=== PATIENT | female | born 1960 | race Caucasian/White ===

== ENCOUNTER 2017-01-04 17:22 | Inpatient (IN) | payer OTHER, MEDICARE ==
[~2017-01-04] VITALS: Ht 172.7 cm; Wt 73.6 kg
[2017-01-04 17:42] VITALS: BP 159/91; PULSE 99; RESP 18; TEMP 97.8; O2SAT 100
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
--- NOTE | 2017-01-04 18:29 | RADRPT ---
EXAM DATE/TIME: 01/04/2017 17:50 [facility] COMPARISON: No previous studies available for comparison. INDICATIONS : Low back pain, fell MEDICAL HISTORY : None. SURGICAL HISTORY : None. ENCOUNTER: Initial ACUITY: 4 - 6 months PAIN SCORE: Non-responsive. LOCATION: Lumbar spine FINDINGS: Mild disc space narrowing and mild anterior osteophyte formation noted. Moderate facet hypertrophic c hanges at L3-4 through L5-S1. No compression deformity. CONCLUSION: Degenerative changes are noted as above. Fito Dumont MD on January 04, 2017 at 18:27 Board Certified Radiologist. This report was verified electronically.
[2017-01-04 19:16] VITALS: BP 154/93; PULSE 71; RESP 18; TEMP 97.7; O2SAT 100
[2017-01-04 20:13] LABS: AUTOMATED NEUTROPHIL # 2.4 TH/MM3 (1.8-7.7); BASOPHIL % 0.7 % (0.0-2.0); EOSINOPHIL % 0.3 % (0.0-4.0); HEMATOCRIT 40.4 % (35.0-46.0); HEMO FLAGS DIFF FINAL; LYMPH % 28.4 % (9.0-44.0); LYMPHOCYTE # 1.2 TH/MM3 (1.0-4.8); MEAN CELL VOLUME 99.2 FL (80.0-100.0); MEAN CORPUSCULAR HGB CONC 34.2 % (32.0-36.0); MONO % 10.8 % (0.0-8.0); NEUT % 59.8 % (16.0-70.0); PLATELET COUNT 286 TH/MM3 (150-450); RED BLOOD COUNT 4.07 MIL/MM3 (4.00-5.30); RED CELL DISTRIBUTION WIDTH 13.1 % (11.6-17.2); WHITE BLOOD COUNT 4.1 TH/MM3 (4.0-11.0)
[2017-01-04 20:19] LABS: ANION GAP 7 MEQ/L (5-15); AST (GOT) 53 U/L (15-37); BICARBONATE 30.9 MEQ/L (21.0-32.0); BLOOD UREA NITROGEN 6 MG/DL (7-18); CHLORIDE 98 MEQ/L (98-107); GLOMERULAR FILTRATION RATE 97 ML/MIN (>89); POTASSIUM 3.4 MEQ/L (3.5-5.1); SODIUM (NA) 136 MEQ/L (136-145)
[2017-01-04 20:23] LABS: ALKALINE PHOSPHATASE 87 U/L (45-117); ALT (GPT) 51 U/L (10-53); TOTAL BILIRUBIN ADULT 0.4 MG/DL (0.2-1.0)
[2017-01-04 20:24] LABS: ALCOHOL LESS THAN 3 MG/DL (0-5)
[2017-01-04 23:24] VITALS: BP 111/62; PULSE 84; RESP 18
[2017-01-05] MEDS ORDERED: LEVO88TA2 PO (01:43)
[2017-01-05 02:30] VITALS: BP 123/86; PULSE 73; RESP 18; TEMP 97.8; O2SAT 99
[2017-01-05] MEDS ORDERED: ALUMINUM/MAGNESIUM/SIMETH 30 ML CUP PO PRN (02:45)
[2017-01-05] MEDS ORDERED: MAGNESIUM HYDROXIDE SUSP 30 ML CUP PO PRN (02:45)
[2017-01-05] MEDS ORDERED: LORazepam 1 MG TAB PO PRN (02:45)
[2017-01-05] MEDS ORDERED: LORazepam 2 MG/ML VIAL IM PRN (02:45)
[2017-01-05] MEDS ORDERED: diphenhydrAMINE HCL 50 MG/ML VIAL - HS PRN IM (02:45)
[2017-01-05] MEDS ORDERED: diphenhydrAMINE HCL 50 MG/ML VIAL IM PRN (02:45)
[2017-01-05] MEDS ORDERED: hydrOXYzine HCL 50 MG TAB PO PRN ×2 (02:45→11:30)
[2017-01-05] MEDS ORDERED: ACETAMINOPHEN 325 MG TAB PO PRN (02:45)
[2017-01-05] MEDS ORDERED: diphenhydrAMINE HCL 50 MG CAP - HS PRN PO (02:45)
[2017-01-05] MEDS ORDERED: diphenhydrAMINE HCL 50 MG CAP PO PRN (02:45)
[2017-01-05 06:00] VITALS: BP 136/84; PULSE 81; RESP 18; TEMP 97.9; O2SAT 97
[2017-01-05] MEDS ORDERED: LEVOTHYROXINE SODIUM 88 MCG TAB PO SCH (06:00)
[2017-01-05] MEDS: NICOTINE 21 MG/24 HR PATCH T-DERMAL SCH (08:13)
--- NOTE | 2017-01-05 09:47 | PD.CONS ---
[facility] By Reason for Consult medical management Primary Care Physician Unknown Diagnoses: History of Present Illness patient is a 56 y/o female with history of anxiety and hypothyroidism who presented to ER after she fell the other day. she says that while she was at a store she slipped and fell and started to have some back pain. there's no history of syncope. she says that her back pain is much better now but she's complaining of anxiety. she denies any chest pain, sob, abdominal pain, nausea. Review of Systems Constitutional: DENIES: Fever, Weight loss, Chills, Night Sweats Eyes: DENIES: Blurred vision, Diplopia, Vision loss, Double Vision Ears, nose, mouth, throat: DENIES: Tinnitus, Vertigo, Throat pain, Epistaxis Respiratory: DENIES: Apneas, Cough, Snoring, Wheezing, Hemoptysis, Sputum production, Shortness of breath Cardiovascular: DENIES: Chest pain, Palpitations, Syncope, Dyspnea on Exertion , PND, Lower Extremity Edema, Orthopnea, Claudication Gastrointestinal: DENIES: Abdominal pain, Black stools, Bloody stools, Constipation, Diarrhea, Nausea, Vomiting, Difficulty Swallowing, Anorexia Genitourinary: DENIES: Urinary frequency, Urgency, Hematuria, Dysuria Musculoskeletal: COMPLAINS OF: Back pain, DENIES: Joint pain, Muscle aches, Stiffness, Joint Swelling Integumentary: DENIES: Rash Neurologic: DENIES: Abnormal gait, Headache, Localized weakness, Paresthesias, Seizures, Speech Problems, Tremor, Poor Balance Psychiatric: COMPLAINS OF: Anxiety, DENIES: Confusion, Mood changes, Depression , Hallucinations, Agitation, Suicidal Ideation, Homicidal Ideation, Delusions Past Family Social History Allergies: Coded Allergies: Sulfa (Sulfonamide Antibiotics) (Unverified Allergy, Severe, Rash, ) codeine (Unverified Allergy, Severe, Nausea/Vomiting, 01/04/17) erythromycin base (Unverified Allergy, Severe, Rash, 01/04/17) morphine (Unverified Allergy, Severe, Nausea/Vomiting, 01/04/17) gentamicin (Unverified Allergy, Mild, 01/04/17) neomycin (Unverified Allergy, Mild, 01/04/17) streptomycin (Unverified Allergy, Mild, 01/04/17) tobramycin (Unverified Allergy, Mild, 01/04/17) Past Medical History anxiety hypothyroidism Past Surgical History surgery on the right hand. Reported Medications levothyroxine. Active Ordered Medications Current Medications Hydroxyzine Pamoate (Vistaril) 50 mg ONCE ONCE PO Last administered on 18:23; Start 01/04/17 at 17:45; Stop 01/04/17 at 17:46; Status DC Lorazepam (Ativan) 1 mg Q6H PRN PO MODERATE TO SEVERE ANXIETY; Start 01/05/17 at 02:45 Lorazepam (Ativan Inj) 1 mg Q6H PRN IM MODERATE TO SEVERE ANXIETY; Start 01/05 at 02:45 Hydroxyzine HCl (Atarax) 50 mg Q6H PRN PO ANXIETY Last administered on 02:57; Start 01/05/17 at 02:45 Diphenhydramine HCl (Benadryl) 50 mg Q6H PRN PO MILD ANXIETY, EPS; Start 01/05 at 02:45 Diphenhydramine HCl (Benadryl Inj) 50 mg Q6H PRN IM MILD ANXIETY, EPS; Start 01/05/17 at 02:45 Diphenhydramine HCl (Benadryl) 50 mg HS PRN PO INSOMNIA; Start 01/05/17 at 02: 45 Diphenhydramine HCl (Benadryl Inj) 50 mg HS PRN IM INSOMNIA; Start 01/05/17 at 02:45 Acetaminophen (Tylenol) 650 mg Q4H PRN PO Pain 1-5 or Temp >101F; Start at 02:45 Magnesium Hydroxide (Milk Of Magnesia Liq) 30 ml DAILY PRN PO CONSTIPATION; Start 01/05/17 at 02:45 Al Hydrox/Mg Hydrox/Simethicone (Mag-Al Plus Susp Liq) 30 ml Q6H PRN PO DYSPEPSIA; Start 01/05/17 at 02:45 Nicotine (Habitrol 21 Mg Patch.24 Hr) 1 patch DAILY T-DERMAL Last administered on 01/05/17 08:13; Start 01/05/17 at 09:00 Miscellaneous Information 1 HS T-DERMAL ; Start 01/05/17 at 21:00 Levothyroxine Sodium (Synthroid) 88 mcg DAILY@0600 PO Last administered on t 05:56; Start 01/05/17 at 06:00 Social History smokes and drinks daily. Physical Exam Vital Signs Vital Signs Date Time Temp Pulse Resp B/P (MAP) Pulse Ox O2 Delivery O2 Flow Rate FiO2 01/05/17 06:00 97.9 81 18 136/84 (101) 97 01/05/17 02:30 97.8 73 18 123/86 (98) 99 01/04/17 23:24 84 18 111/62 (78) 01/04/17 19:16 97.7 71 18 154/93 (113) 100 Room Air 01/04/17 17:42 97.8 99 18 159/91 (113) 100 Physical Exam GENERAL: This is a well-nourished, well-developed patient, in no apparent distress. SKIN: No rashes, ecchymoses or lesions. Cool and dry. HEAD: Atraumatic. Normocephalic. No temporal or scalp tenderness. EYES: Pupils equal round and reactive. Extraocular motions intact. No scleral icterus. No injection or drainage. ENT: Nose without bleeding, purulent drainage or septal hematoma. Throat without erythema, tonsillar hypertrophy or exudate. Uvula midline. Airway patent. NECK: Trachea midline. No JVD or lymphadenopathy. Supple, nontender, no meningeal signs. CARDIOVASCULAR: Regular rate and rhythm without murmurs, gallops, or rubs. RESPIRATORY: Clear to auscultation. Breath sounds equal bilaterally. No wheezes , rales, or rhonchi. GASTROINTESTINAL: Abdomen soft, non-tender, nondistended. No hepato-splenomegaly , or palpable masses. No guarding. MUSCULOSKELETAL: Extremities without clubbing, cyanosis, or edema. No joint tenderness, effusion, or edema noted. No calf tenderness. Negative Homans sign bilaterally. NEUROLOGICAL: Awake and alert. Laboratory Laboratory Tests Test 01/04/17 19:25 White Blood Count 4.1 Red Blood Count 4.07 Hemoglobin 13.8 Hematocrit 40.4 Mean Corpuscular Volume 99.2 Mean Corpuscular Hemoglobin 34.0 Mean Corpuscular Hemoglobin Concent 34.2 Red Cell Distribution Width 13.1 Platelet Count 286 Mean Platelet Volume 7.8 Neutrophils (%) (Auto) 59.8 Lymphocytes (%) (Auto) 28.4 Monocytes (%) (Auto) 10.8 Eosinophils (%) (Auto) 0.3 Basophils (%) (Auto) 0.7 Neutrophils # (Auto) 2.4 Lymphocytes # (Auto) 1.2 Monocytes # (Auto) 0.4 Eosinophils # (Auto) 0.0 Basophils # (Auto) 0.0 CBC Comment DIFF FINAL Differential Comment Blood Urea Nitrogen 6 Creatinine 0.64 Random Glucose 95 Total Protein 7.0 Albumin 4.1 Calcium Level 8.4 Alkaline Phosphatase 87 Aspartate Amino Transf (AST/SGOT) 53 Alanine Aminotransferase (ALT/SGPT) 51 Total Bilirubin 0.4 Sodium Level 136 Potassium Level 3.4 Chloride Level 98 Carbon Dioxide Level 30.9 Anion Gap 7 Estimat Glomerular Filtration Rate 97 Urine Opiates Screen NEG Urine Barbiturates Screen NEG Urine Amphetamines Screen NEG Urine Benzodiazepines Screen NEG Urine Cocaine Screen NEG Urine Cannabinoids Screen NEG Ethyl Alcohol Level LESS THAN 3 Result Diagram: 01/04/17192401/04/17 192 Imaging Last Impressions Lumbar Spine X-Ray 01/04/17 0000 Signed Impressions: Service Date/Time: Wednesday, January 04, 2017 17:50 - CONCLUSION: Degenerative changes are noted as above. Fito Dumont MD Assessment and Plan Assessment and Plan A/P - anxiety; management per psych. -low back pain after a fall- XR of the lumbar spine with no fractures- continue with pain control. -hypothyroidism; continue levothyroxine-check TSH. thank you for the consult. Discussed Condition With the patient. Basim Mcrae MD Jan 05, 2017 09:47
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
[2017-01-05] MEDS ORDERED: NICOTINE 21 MG/24 HR PATCH T-DERMAL SCH (12:00)
[2017-01-05] MEDS: QUEtiapine FUMARATE 25 MG TAB PO SCH (15:40)
[2017-01-05 18:01] VITALS: BP 127/79; PULSE 98; RESP 18; TEMP 97.4; O2SAT 100
[2017-01-05] MEDS: QUEtiapine FUMARATE 100 MG TAB PO SCH (20:31)
[2017-01-05] MEDS: REMOVE OLD NICOTINE PATCH T-DERMAL SCH (20:32)
[2017-01-06] MEDS: ACETAMINOPHEN 325 MG TAB PO PRN ×2 (01:11→05:52)
[2017-01-06] MEDS: diphenhydrAMINE HCL 50 MG CAP PO PRN ×2 (01:12→21:22)
[2017-01-06 05:33] VITALS: BP 125/85; PULSE 72; RESP 18; TEMP 97.3; O2SAT 97
[2017-01-06] MEDS ORDERED: LEVOTHYROXINE SODIUM 88 MCG TAB PO SCH (06:00)
[2017-01-06 07:58] LABS: AUTOMATED NEUTROPHIL # 1.6 TH/MM3 (1.8-7.7); BASOPHIL % 0.5 % (0.0-2.0); EOSINOPHIL # 0.1 TH/MM3 (0-0.4); EOSINOPHIL % 3.4 % (0.0-4.0); HEMATOCRIT 42.5 % (35.0-46.0); HEMO FLAGS DIFF FINAL; LYMPH % 47.2 % (9.0-44.0); LYMPHOCYTE # 1.9 TH/MM3 (1.0-4.8); MEAN CELL VOLUME 100.9 FL (80.0-100.0); MEAN CORPUSCULAR HEMOGLOBIN 33.4 PG (27.0-34.0); MEAN CORPUSCULAR HGB CONC 33.1 % (32.0-36.0); MONO % 8.2 % (0.0-8.0); NEUT % 40.7 % (16.0-70.0); PLATELET COUNT 261 TH/MM3 (150-450); RED BLOOD COUNT 4.21 MIL/MM3 (4.00-5.30); RED CELL DISTRIBUTION WIDTH 13.6 % (11.6-17.2); WHITE BLOOD COUNT 3.9 TH/MM3 (4.0-11.0)
[2017-01-06] MEDS: QUEtiapine FUMARATE 25 MG TAB PO SCH ×2 (08:14→16:41)
[2017-01-06] MEDS: NICOTINE 21 MG/24 HR PATCH T-DERMAL SCH (08:15)
[2017-01-06 08:25] LABS: ANION GAP 7 MEQ/L (5-15); BLOOD UREA NITROGEN 12 MG/DL (7-18); CHLORIDE 100 MEQ/L (98-107); GLOMERULAR FILTRATION RATE 120 ML/MIN (>89); POTASSIUM 3.8 MEQ/L (3.5-5.1); SODIUM (NA) 136 MEQ/L (136-145)
[2017-01-06 08:36] LABS: FREE T3 2.99 PG/ML (2.18-3.98); HDL CHOLESTEROL 129.8 MG/DL (40.0-60.0); LDL CHOLESTEROL 58 MG/DL (0-99)
[2017-01-06] MEDS ORDERED: IBUPROFEN 600 MG TAB PO PRN (11:15)
--- NOTE | 2017-01-06 11:15 | HHI.PR ---
Subjective Remarks in no acute distress. has some back pain. no focal weakness or numbness. d/w the RN and no acute issues over night. Objective Vitals Vital Signs Date Time Temp Pulse Resp B/P (MAP) Pulse Ox O2 Delivery O2 Flow Rate FiO2 01/06/17 05:33 97.3 72 18 125/85 (98) 97 01/05/17 18:01 97.4 98 18 127/79 (95) 100 I/O 01/05/17 01/05/17 01/05/17 01/06/17 01/06/17 01/06/17 07:00 15:00 23:00 07:00 15:00 23:00 Intake Total 540 ml 240 ml 360 ml Balance 540 ml 240 ml 360 ml Intake Oral 540 ml 240 ml 360 ml Result Diagram: 01/06/17 0708 01/06/17 0708 Imaging Last Impressions Lumbar Spine X-Ray 01/04/17 0000 Signed Impressions: Service Date/Time: Wednesday, January 04, 2017 17:50 - CONCLUSION: Degenerative changes are noted as above. Fito Dumont MD Objective Remarks GENERAL: This is a well-nourished, well-developed patient, in no apparent distress. CARDIOVASCULAR: Regular rate and regular rhythm without murmurs, gallops, or rubs. RESPIRATORY: Clear to auscultation. Breath sounds equal bilaterally. No wheezes , rales, or rhonchi. GASTROINTESTINAL: Abdomen soft, non-tender, nondistended. Normal, active bowel sounds MUSCULOSKELETAL: Extremities without clubbing, cyanosis, or edema. NEURO: Alert & Oriented x4 to person, place, time, situation. Moves all ext x4 Medications and IVs Current Medications Hydroxyzine Pamoate (Vistaril) 50 mg ONCE ONCE PO Last administered on t 18:23; Start 01/04/17 at 17:45; Stop 01/04/17 at 17:46; Status DC Lorazepam (Ativan) 1 mg Q6H PRN PO MODERATE TO SEVERE ANXIETY; Start 01/05/17 at 02:45; Stop 01/05/17 at 11:26; Status DC Lorazepam (Ativan Inj) 1 mg Q6H PRN IM MODERATE TO SEVERE ANXIETY; Start 01/05 at 02:45; Stop 01/05/17 at 11:26; Status DC Hydroxyzine HCl (Atarax) 50 mg Q6H PRN PO ANXIETY Last administered on 02:57; Start 01/05/17 at 02:45; Stop 01/05/17 at 11:47; Status DC Diphenhydramine HCl (Benadryl) 50 mg Q6H PRN PO MILD ANXIETY, EPS; Start 01/05 at 02:45; Stop 01/05/17 at 11:26; Status DC Diphenhydramine HCl (Benadryl Inj) 50 mg Q6H PRN IM MILD ANXIETY, EPS; Start 01/05/17 at 02:45; Stop 01/05/17 at 11:26; Status DC Diphenhydramine HCl (Benadryl) 50 mg HS PRN PO INSOMNIA; Start 01/05/17 at 02: 45; Stop 01/05/17 at 11:47; Status DC Diphenhydramine HCl (Benadryl Inj) 50 mg HS PRN IM INSOMNIA; Start 01/05/17 at 02:45; Stop 01/05/17 at 11:26; Status DC Acetaminophen (Tylenol) 650 mg Q4H PRN PO Pain 1-5 or Temp >101F; Start at 02:45; Stop 01/05/17 at 11:47; Status DC Magnesium Hydroxide (Milk Of Magnesia Liq) 30 ml DAILY PRN PO CONSTIPATION; Start 01/05/17 at 02:45 Al Hydrox/Mg Hydrox/Simethicone (Mag-Al Plus Susp Liq) 30 ml Q6H PRN PO DYSPEPSIA; Start 01/05/17 at 02:45 Nicotine (Habitrol 21 Mg Patch.24 Hr) 1 patch DAILY T-DERMAL Last administered on 01/06/17 08:15; Start 01/05/17 at 09:00 Miscellaneous Information 1 HS T-DERMAL Last administered on 01/05/17 20:32; Start 01/05/17 at 21:00 Levothyroxine Sodium (Synthroid) 88 mcg DAILY@0600 PO Last administered on 05:56; Start 01/05/17 at 06:00; Stop 01/05/17 at 11:46; Status DC Diphenhydramine HCl (Benadryl) 50 mg HS PRN PO INSOMNIA Last administered on 01:12; Start 01/05/17 at 11:30 Acetaminophen (Tylenol) 650 mg Q4H PRN PO Pain 1-5 or Temp >101F Last administered on 01/06/17 05:52; Start 01/05/17 at 11:30 Nicotine (Habitrol 21 Mg Patch.24 Hr) 1 patch DAILY T-DERMAL ; Start 01/05/17 at 12:00; Stop 01/05/17 at 12:00; Status DC Hydroxyzine HCl (Atarax) 50 mg Q6H PRN PO ANXIETY; Start 01/05/17 at 11:30 Levothyroxine Sodium (Synthroid) 88 mcg DAILY@0600 PO Last administered on 05:44; Start 01/06/17 at 06:00 Quetiapine Fumarate (SEROquel) 25 mg BID@0900,1600 PO Last administered on 08:14; Start 01/05/17 at 16:00 Quetiapine Fumarate (SEROquel) 50 mg HS PO Last administered on 01/05/17 20: 31; Start 01/05/17 at 21:00 A/P Assessment and Plan A/P - anxiety; management per psych. -low back pain after a fall- XR of the lumbar spine with no fractures- continue with pain control. -hypothyroidism;elevated TSH; will increase levothyroxine- TSH in 3-4 weeks. [facility] will sign off and see her as needed. d/w the Basim Valadez MD Jan 06, 2017 11:15
--- NOTE | 2017-01-06 11:17 | HHI.PYPN ---
Subjective Chief Complaint: racing thoughts somewhat uncontrollable vague suicidality and depression Remarks Patient seen in her room with nurse Krys and medical student Rika, patient alert oriented and calm, though focusing on her pain issues primarily complain pain in her back and lower back. Referring her back to her of all she claimed happened at at [employer]. She stated she slept a couple of hours. Patient does denies suicidality homicidality voices or visions. However, when asked about her opinion concerning absolute sobriety she said "I will keep it open". To me that implies a desire to continue drinking. She also states she was with people who are partiers and drinkers. Patient has been compliant with her Seroquel. There appears to be no issue with it at this time. For now continue treatment. Will need another 24 hours observation the patient continues to do well showing no signs of reaction to the medication we'll consider discharging her tomorrow with referral to [facility] and [facility] Review of Systems Except as stated in HPI: all other systems reviewed are Neg Mental Status Examination Appearance: Appropriate Consciousness: Alert Orientation: x4 Motor Activity: Normal gait Speech: Unremarkable, Pressured (mildly), Rapid (mildly) Language: Adequate Fund of Knowledge: Adequate Attention and Concentration: Other Memory: Unremarkable (fair) Mood: Other ( fair) Affect: Other (good range and intensity) Thought Process & Associations: Intact Thought Content: Racing thoughts (decreasing) Hallucination Type: None (denies) Delusion Type: None Suicidal Ideation: Yes (denies at this time) Suicidal Plan: No Suicidal Intention: No Homicidal Ideation: No Homicidal Plan: No Homicidal Intention: No Insight: Poor Judgment: Poor Results Labs Test 01/06/17 07:08 White Blood Count 3.9 TH/MM3 Red Blood Count 4.21 MIL/MM3 Hemoglobin 14.1 GM/DL Hematocrit 42.5 % Mean Corpuscular Volume 100.9 FL Mean Corpuscular Hemoglobin 33.4 PG Mean Corpuscular Hemoglobin Concent 33.1 % Red Cell Distribution Width 13.6 % Platelet Count 261 TH/MM3 Mean Platelet Volume 7.9 FL Neutrophils (%) (Auto) 40.7 % Lymphocytes (%) (Auto) 47.2 % Monocytes (%) (Auto) 8.2 % Eosinophils (%) (Auto) 3.4 % Basophils (%) (Auto) 0.5 % Neutrophils # (Auto) 1.6 TH/MM3 Lymphocytes # (Auto) 1.9 TH/MM3 Monocytes # (Auto) 0.3 TH/MM3 Eosinophils # (Auto) 0.1 TH/MM3 Basophils # (Auto) 0.0 TH/MM3 CBC Comment DIFF FINAL Differential Comment Blood Urea Nitrogen 12 MG/DL Creatinine 0.53 MG/DL Random Glucose 95 MG/DL Calcium Level 8.6 MG/DL Sodium Level 136 MEQ/L Potassium Level 3.8 MEQ/L Chloride Level 100 MEQ/L Carbon Dioxide Level 29.0 MEQ/L Anion Gap 7 MEQ/L Estimat Glomerular Filtration Rate 120 ML/MIN Triglycerides Level 58 MG/DL Cholesterol Level 199 MG/DL LDL Cholesterol 58 MG/DL HDL Cholesterol 129.8 MG/DL Cholesterol/HDL Ratio 1.53 RATIO Free Thyroxine 0.80 NG/DL Free Triiodothyronine (T3) pg/dL 2.99 PG/ML Thyroid Stimulating Hormone 3rd Gen 21.400 uIU/ML Vitals/IOs Vital Signs Date Time Temp Pulse Resp B/P (MAP) Pulse Ox O2 Delivery O2 Flow Rate FiO2 01/06/17 05:33 97.3 72 18 125/85 (98) 97 01/04/17 19:16 Room Air Intake and Output 01/06/17 01/06/17 01/07/17 08:00 16:00 00:00 Intake Total 360 ml Balance 360 ml Assessment & Plan Problem List: (1) History of drug abuse ICD Codes: Z87.898 - Personal history of other specified conditions (2) Bipolar I disorder, most recent episode (or current) mixed, moderate ICD Codes: F31.62 - Bipolar disorder, current episode mixed, moderate Assessment & Plan Estimated LOS: days patient somewhat calmer today though continues somaticize and focusing on pain. She is compliant with medications. Does denies suicidality homicidality voices or visions. Will change atenolol to Motrin at this time. Continue to observe him of the 24 hours with things remain stable consider discharging her tomorrow Justification for Cont. Inpt. At this time patient decompensate the placed a lower level of care Discharge Planning Return to her home with outpatient services Request HC Surrog/Guard Advoc?: No Jayden Childs MD Jan 06, 2017 11:16
[2017-01-06] MEDS: IBUPROFEN 400 MG TAB PO PRN ×3 (12:19→21:22)
--- NOTE | 2017-01-06 12:36 | PD.TTN ---
Patient Problems 1. Discharge planning 2. Medication compliance 3. Knowledge deficit 4. Lack of coping skills Progress Toward Goals Provider Present: Dr. Ángel Childs Provider Input: Dr. Childs's treatment team met to discuss patient' s treatment plan, discharge and medication. Patient is medication compliant. If patient presents well today possible discharge today or tomorrow. Will continue with treatment. Nurse(s) Input: Patient's nurse Krys reports patient stated she has no thoughts to hurt herself but does not think she can stay clean of alcohol if released. Talked about getting support. Psychiatric Counselors Present: KEVIN OlsenZahira Psych Therapist Input: Patient seen today. Patient presented anxious, cooperative, affect blunted. Patient is alert to person, place, time/day but has poor insight into her situation. Patient's speech was clear, and organized. Patient made good eye contact. Patient denies suicidal and homicidal ideation. Patient is medication compliant. Patient will be given a substance abuse packet for resources. Patient states she will return to her apartment when discharged. Group Spec/RT/OT/MILLER Present: PAUL Guerrero Group Spec/RT/OT/MILLER Input: Patient attends groups regularly. Patient somewhat childlik, entitled, and needy. Lolly Nichole [facility] Jan 06, 2017 12:36
[2017-01-06 13:29] LABS: HEMOGLOBIN A1a 0.9 %; HEMOGLOBIN A1b 0.9 %; HEMOGLOBIN F 0.8 %; HEMOGLOBIN LA1C 2.2 %; HEMOGLOBIN P3 3.6 %
[2017-01-06 18:00] VITALS: BP 144/81; PULSE 83; RESP 16; TEMP 97.5; O2SAT 100
[2017-01-06] MEDS: REMOVE OLD NICOTINE PATCH T-DERMAL SCH (21:00)
[2017-01-06] MEDS: QUEtiapine FUMARATE 100 MG TAB PO SCH (21:22)
[2017-01-07 05:33] VITALS: BP 143/87; PULSE 65; RESP 16; TEMP 97.3; O2SAT 99
[2017-01-07] MEDS ORDERED: LEVOTHYROXINE SODIUM 100 MCG TAB PO SCH (06:00)
[2017-01-07] MEDS ORDERED: LEVOTHYROXINE SODIUM 88 MCG TAB PO SCH (06:00)
[2017-01-07] MEDS: QUEtiapine FUMARATE 25 MG TAB PO SCH (07:50)
[2017-01-07] MEDS: IBUPROFEN 400 MG TAB PO PRN (07:51)
[2017-01-07] MEDS: NICOTINE 21 MG/24 HR PATCH T-DERMAL SCH (07:52)
[2017-01-07] MEDS ORDERED: LEVO.1 PO (08:32)
[2017-01-07] MEDS ORDERED: SERO25TA PO (08:32)
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
== END 2017-01-07 11:10 | disposition home or self-care (01) | DRG 885 ==
LOC: NEPD 17:22 → NEDA 01-05 01:33 → H260 01-05 02:10 → H250 01-07 11:00
PROVIDERS: ADMIT Psychiatry & Neurology Psychiatry; ATTEND Psychiatry & Neurology Psychiatry
DX: F31.62 Bipolar disorder, current episode mixed, moderate (principal); E03.9 Hypothyroidism, unspecified; M54.5 Low back pain; W01.0XXA Fall on same level from slipping, tripping and stumbling without subsequent striking against object, initial encounter
CPT/HCPCS: 72100; 80048; 80053; 80061; 80307; 83036; 84439; 84443; 84481; 85025; Q0163

== ENCOUNTER 2017-06-07 00:59 | Emergency (ER) | payer MEDICARE, OTHER ==
[~2017-06-07] VITALS: Ht 172.7 cm; Wt 80.0 kg
[~2017-06-07 00:59] MED LIST: LEVO.1 PO; LEVO88TA2 PO; SERO25TA PO
[2017-06-07 01:30] VITALS: BP 104/65; PULSE 83; RESP 20; TEMP 98.6; O2SAT 97
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
== END 2017-06-07 12:57 | disposition home or self-care (01) ==
LOC: NEPD 00:59
DX: F10.929 Alcohol use, unspecified with intoxication, unspecified (principal); E03.9 Hypothyroidism, unspecified; F41.9 Anxiety disorder, unspecified; F32.9 Major depressive disorder, single episode, unspecified; E07.9 Disorder of thyroid, unspecified; F17.210 Nicotine dependence, cigarettes, uncomplicated; Z88.1 Allergy status to other antibiotic agents; Z88.2 Allergy status to sulfonamides; Z88.5 Allergy status to narcotic agent
CPT/HCPCS: 99283